=== PATIENT | male | born 1985 | race Caucasian/White ===

== ENCOUNTER 2022-04-02 09:54 | Emergency (ER) | payer BC ==
[2022-04-02] MEDS ORDERED: ACETAMINOPHEN TAB 500 MG TAB PO STA (10:36)
[2022-04-02] MEDS ORDERED: ONDANSETRON ODT 4 MG TAB PO STA ×2 (10:36→12:30)
[2022-04-02] MEDS ORDERED: IBUPROFEN 600 MG TAB PO STA (10:36)
[2022-04-02] MEDS ORDERED: ONDANSETRON 4 MG/2 ML VIAL IVP STA (10:44)
--- NOTE | 2022-04-02 10:46 | ED ---
General Adult HPI - General Chief complaint: Weakness Stated complaint: lightheaded, fever Time Seen by Provider: 04/02/22 10:14 Source: patient, RN notes reviewed Mode of arrival: ambulatory Limitations: no limitations - History of Present Illness Initial comments: 36-year-old male presents emergency Department chief complaint of fever cough congestion bodyaches fatigue. Symptoms started on Sunday when he states that he just was exposed to heat for too long. Patient states he is not taking recent Tylenol Motrin he states he has had some nausea and vomiting he states this feels very rundown, tired. No sick contacts denies any significant past medical history NO KNOWN DRUG ALLERGIES. - Related Data Previous Rx's Medication Instructions Recorded Ondansetron Odt [Zofran Odt] 4 mg PO Q8HR PRN #10 tab 04/02/22 Allergies Allergy/AdvReac Type Severity Reaction Status Date / Time No Known Allergies Allergy Verified 04/02/22 10:09 Review of Systems ROS Statement: Those systems with pertinent positive or pertinent negative responses have been documented in the HPI. ROS Other: All systems not noted in ROS Statement are negative. Past Medical History Past Medical History: No Reported History History of Any Multi-Drug Resistant Organisms: None Reported Past Surgical History: No Surgical Hx Reported Past Psychological History: No Psychological Hx Reported Smoking Status: Current every day smoker Past Alcohol Use History: Rare Past Drug Use History: None Reported General Exam Limitations: no limitations General appearance: alert, in no apparent distress Head exam: Present: atraumatic, normocephalic, normal inspection Eye exam: Present: normal appearance, PERRL, EOMI. Absent: scleral icterus, conjunctival injection, periorbital swelling ENT exam: Present: normal exam, normal oropharynx, mucous membranes moist Neck exam: Present: normal inspection, full ROM. Absent: tenderness, meningismus, lymphadenopathy Respiratory exam: Present: normal lung sounds bilaterally. Absent: respiratory distress, wheezes, rales, rhonchi, stridor Cardiovascular Exam: Present: regular rate, normal rhythm, normal heart sounds. Absent: systolic murmur, diastolic murmur, rubs, gallop, clicks GI/Abdominal exam: Present: soft, normal bowel sounds. Absent: distended, tenderness, guarding, rebound, rigid Course Vital Signs 04/02/22 10:07 Temperature 99.8 F H Pulse Rate 97 Respiratory 16 Rate Blood Pressure 155/97 O2 Sat by Pulse 98 Oximetry Medical Decision Making - Medical Decision Making Patient is COVID-19 positive. Patient will receive monoclonal antibodies. Patient was given Tylenol Motrin, antiemetics will be discharged in stable condition with temperature discussed. - Lab Data Lab Results 04/02/22 Range/Units 10:17 Coronavirus (PCR) Detected A (Not Detectd) Disposition Clinical Impression: COVID-19 Disposition: HOME SELF-CARE Condition: Stable Instructions (If sedation given, give patient instructions): COVID-19 (Coronavirus Disease 2019) (ED) Additional Instructions: Please return to the Emergency Department if symptoms worsen or any other concerns. Prescriptions: Ondansetron Odt [Zofran Odt] 4 mg PO Q8HR PRN #10 tab PRN Reason: Nausea Is patient prescribed a controlled substance at d/c from ED?: No Referrals: Nonstaff,Physician [Primary Care Provider] - 1-2 days Time of Disposition: 10:46
[2022-04-02] MEDS ORDERED: BEBTELOVIMAB (EUA) 175 MG/2 ML VIAL IV ONE (11:30)
[2022-04-02] MEDS ORDERED: ONDANSETRON 4 MG ODT STARTER PACK 2 TAB BTL PO STA (12:30)
[2022-04-02 12:35] VITALS: BP 129/63; PULSE 77; RESP 20; TEMP 98.4
== END 2022-04-02 12:34 | disposition home or self-care (01) ==
LOC: EC 09:54
DX: U07.1 COVID-19 (principal); F17.200 Nicotine dependence, unspecified, uncomplicated
CPT/HCPCS: 87635; 99283; 96374; J2405; S0119; Q0222